=== PATIENT | female | born 1955 | race Caucasian/White ===

== ENCOUNTER → 2020-06-03 | Outpatient (CLI) | payer MEDICARE ==
--- NOTE | 2020-06-03 14:48 | US ---
EXAMINATION TYPE: US transvaginal DATE OF EXAM: 06/03/2020 COMPARISON: NONE CLINICAL HISTORY: N95.0 POST MENOPAUSAL BLEEDING. TECHNIQUE: Transvaginal (TV). Date of LMP: postmenopausal EXAM MEASUREMENTS: Uterus: 6.9 x 3.6 x 4.0 cm Endometrial Stripe: 1.3 cm Right Ovary: not visualized atrophy/ overlying bowel Left Ovary: not visualized atrophy/ overlying bowel 1. Uterus: Anteverted 2. Endometrium: thickened heterogeneous, irregular shaped fluid collection with debris in endocervica l canal 3. Right Ovary: not visualized atrophy/ overlying bowel 4. Left Ovary: not visualized atrophy/ overlying bowel 5. Bilateral Adnexa: wnl 6. Posterior cul-de-sac: wnl IMPRESSION: There is a prominent irregular hypoechoic collection within the cervical endometrial donaldo l. Fluid and debris could be considered. Additional workup recommended.
== END | disposition home or self-care (01) ==
LOC: RADUSWWP 13:55
PROVIDERS: ATTEND Obstetrics & Gynecology
DX: R93.89 Abnormal findings on diagnostic imaging of other specified body structures (principal); N95.0 Postmenopausal bleeding
CPT/HCPCS: 76830

== ENCOUNTER → 2020-06-11 | Outpatient (CLI) | payer MEDICARE ==
[2020-06-11 12:07] LABS: Basophils # (A) 0.1 k/uL (0-0.2); Basophils % (A) 1 %; Eosinophils # (A) 0.2 k/uL (0-0.7); Eosinophils % (A) 3 %; HCT 44.1 % (34.0-46.0); Lymphocytes # (A) 1.4 k/uL (1.0-4.8); Lymphocytes % (A) 20 %; MCH 30.7 pg (25.0-35.0); MCV 90.5 fL (80.0-100.0); Mean Platelet Volume 9.3; Monocytes # (A) 0.4 k/uL (0-1.0); Monocytes % (A) 6 %; Neutrophils # (A) 4.6 k/uL (1.3-7.7); Neutrophils % (A) 68 %; Platelet Count 284 k/uL (150-450); RBC 4.88 m/uL (3.80-5.40); RDW 12.9 % (11.5-15.5); WBC 6.8 k/uL (3.8-10.6)
== END | disposition home or self-care (01) ==
LOC: LABPAT 11:07
PROVIDERS: ATTEND Obstetrics & Gynecology
DX: Z01.818 Encounter for other preprocedural examination (principal)
CPT/HCPCS: 36415; 85025; 93005

== ENCOUNTER → 2020-06-23 | Day surgery (SDC) | payer MEDICARE ==
[2020-06-16 12:57] VITALS: BMI 38.0
--- NOTE | 2020-06-22 15:56 | P.HPOB ---
History of Present Illness H&P Date: 06/22/20 Chief Complaint: Postmenopausal bleeding. This patient is a pleasant 65 yr female who was referred to me evaluation of postmenopausal bleeding. When she initially saw me, she was leaving for [place] for 3 months and intended on doing evaluation there. Unfortunately her daughter was then hit by a train and lost her leg and Nora therefore returned to [place] for evaluation here. Evaluation has included a pelvic ultrasound which shows abnormal endometrial thickening to 1.3 cm. She how presents for hysteroscopy and D&C for further evaluation. Review of Systems Genitourinary: Reports as per HPI, Reports abnormal vaginal bleeding Menstruation: Reports postmenopausal Past Medical History Past Medical History: Diabetes Mellitus, Hypertension Additional Past Medical History / Comment(s): SEASONAL ALLERGIES. POST MENOPAUSAL BLEEDING History of Any Multi-Drug Resistant Organisms: None Reported Past Surgical History: Section Additional Past Surgical History / Comment(s): D & C. C-SEC X 2. RT EYE PTERYGIUM SX Past Anesthesia/Blood Transfusion Reactions: No Reported Reaction Smoking Status: Never smoker Past Alcohol Use History: None Reported Past Drug Use History: None Reported - Past Family History Mother Family Medical History: Cancer Sister(s) Family Medical History: Cancer Medications and Allergies Home Medications Medication Instructions Recorded Confirmed Type Atenolol/Chlorthalidone 1 tab PO DAILY 12/18/13 06/16/20 History [Atenolol-Chlorthalidone 100-25] diphenhydrAMINE [Benadryl] 25 mg PO Q6H PRN 12/18/13 06/16/20 History Fish Oil/Dha/Epa [Fish Oil 1,200 1 each PO DAILY 06/16/20 06/16/20 History mg Fish Oil] Levocetirizine Dihydrochloride 5 mg PO DAILY 06/16/20 06/16/20 History [Xyzal] Potassium Chloride 10 meq PO DAILY 06/16/20 06/16/20 History metFORMIN HCL [Glucophage] 500 mg PO DAILY 06/16/20 06/16/20 History Allergies Allergy/AdvReac Type Severity Reaction Status Date / Time No Known Allergies Allergy Verified 06/16/20 12:41 Exam - OBG Physical Exam Abdomen: bowel sounds normal, no diffuse tenderness, no bruit present, no guarding noted, no hepatomegaly, no splenomegaly, no mass Vulva: both: normal Vagina: normal moisture, no discharge Cervix: no lesion, no discharge Uterus: normal size Results Ultrasound on 06/03 shows endometrial thickening to 1.3 cm. Assessment and Plan Assessment: This is a pleasant 65 yr old female with postmenopausal bleeding and abnormal endometrial thickening on ultrasound. Plan is hysteroscopy and D&C. Nora and I have discussed this surgery and risks: infection, bleeding, possible uterine perforation. All of her questions were answered and a written consent obtained. (1) Postmenopausal bleeding Status: Acute Code(s): N95.0 - POSTMENOPAUSAL BLEEDING SNOMED Code(s): 58002849 (2) Endometrial thickening on ultrasound Status: Acute Code(s): R93.89 - ABNORMAL FINDINGS ON DX IMAGING OF OTH BODY STRUCTURES SNOMED Code(s): 823029588
[~2020-06-23] MED LIST: ALBUTEROL HFA INHALER INHALATION ONE; DEXAMETHASONE SOD PHOSPHATE 4 MG/ML 1 ML VIAL IV ONE; GLYCOPYRROLATE 0.2 MG/ML 2 ML VIAL ONE; KETOROLAC 15 MG/ML 1 ML VIAL ONE; LACTATED RINGERS 1,000 ML IV ONE; LACTATED RINGERS 1,000 ML IV SCH; LIDOCAINE 1% INJ 10MG/ML (20 ML MDV) ONE; MIDAZOLAM 2 MG/2 ML VIAL ONE; ONDANSETRON 4 MG/2 ML VIAL IVP ONE; ONDANSETRON 4 MG/2 ML VIAL ONE; PROPOFOL 10 MG/ML 20 ML VIAL IV ONE; Pre Op ABX Message 1 EACH MISC MISCELLANE ONE; SUCCINYLCHOLINE CHLORIDE 100 MG/5 ML SYR IV ONE; fentaNYL (PF) 50 MCG/ML 2 ML AMP ONE
[2020-06-23 06:15] LABS: Glucose,Whole Blood 219 mg/dL (75-99)
--- NOTE | 2020-06-23 07:31 | P.OP ---
Date of Procedure: 06/23/20 Preoperative Diagnosis: Post menopausal bleeding Postoperative Diagnosis: Same Procedure(s) Performed: #1: Hysteroscopy. #2: Dilation and curettage Anesthesia: JIM Surgeon: Ronaldo Cadena Estimated Blood Loss (ml): 10 Urine output (ml): 25 Pathology: other (Uterine curettings) Condition: stable Disposition: PACU Indications for Procedure: Please see dictated H&P for intimate details of this patient's admission. Brief summary this is a pleasant 65-year-old 2 para 2 female who presented to [place] for evaluation of postmenopausal bleeding. Dilation showed endometrial thickening to 1.3 cm. Patient now presents for hysteroscopy D&C for further evaluation. Patient I discussed the surgery and risks and risks of infection, bleeding, possible uterine perforation. All the patient's questions are answered written consent is obtained. Operative Findings: This patient had a proximally 1 cm polyp of the endometrium. Description of Procedure: This patient is taken to the operating room where she is laid in the supine position. She subsequently undergoes general endotracheal anesthesia without incident. With an adequate level of anesthesia she's placed in dorsal lithotomy position. Examination under anesthesia shows a small uterus mid position. I first drain the bladder for 25 mL of clear urine. Weighted speculum placed in the posterior vagina. I grabbed the anterior lip of the cervix with an Allis clamp. Cervix is stenotic but is gently dilated and then the uterus is sounded to 7 cm. I do serial dilations until the hysteroscope fits and the uterine cavity easily. Hysteroscopy is performed with saline solution. There appears to be a 1 cm polyp that is pedunculated in the intrauterine cavity. Some small white excrescences but otherwise the cavity appears atrophic. With this done the hysteroscope was removed. Cervix is dilated more to allow the polyp forceps into the uterine cavity. Multiple passes are made to let believe the polyp was removed. A gentle but vigorous 4 quadrant curettage is then done multiple times. All this tissue is sent off to pathology. This completed the procedure is ended. The Allis clamp and weighted speculum was removed. All counts are correct 3. There are no complications. Patient is awakened from anesthesia and taken recovery room satisfactory condition.
[2020-06-23 07:45] VITALS: TEMP 97
[2020-06-23 07:48] LABS: Glucose,Whole Blood 251 mg/dL (75-99)
[2020-06-23 08:38] VITALS: RESP 18
[2020-06-23 08:44] VITALS: BP 145/89; PULSE 50
== END | disposition home or self-care (01) ==
LOC: OR 05:41
PROVIDERS: ATTEND Obstetrics & Gynecology
DX: C54.1 Malignant neoplasm of endometrium (principal); N84.0 Polyp of corpus uteri; I10 Essential (primary) hypertension; E11.9 Type 2 diabetes mellitus without complications; Z98.891 History of uterine scar from previous surgery; Z98.890 Other specified postprocedural states; J30.2 Other seasonal allergic rhinitis; Z80.9 Family history of malignant neoplasm, unspecified; Z79.84 Long term (current) use of oral hypoglycemic drugs; Z79.899 Other long term (current) drug therapy
CPT/HCPCS: 88305; 58558; J2250; J1100; J2405; J2001; J3010; J1885; J0330; J2704

== ENCOUNTER → 2021-11-13 | Outpatient (CLI) | payer MEDICARE ==
--- NOTE | 2021-11-17 06:53 | PE ---
EXAMINATION TYPE: PET CT fusion skull to thigh DATE OF EXAM: 11/13/2021 COMPARISON: Prior PET/CT September 04, 2021 HISTORY: Endometrial cancer diagnosed on hysterectomy in June 2020 completed chemotherapy November 10, 2021 TECHNIQUE: Following the intravenous administration of 9.25 mCi of F-18 FDG, whole body images are p erformed from the skull base to the midthigh. Images are reviewed on the computer in the coronal, ax ial, and sagittal planes. Reconstructed rotating images are created on independent workstation and r eviewed on the computer. A localization and attenuation correction CT is performed in conjunction w ith the PET scan. Blood glucose level equals 141 SCAN: Subsequent Scan FINDINGS: SKULL BASE AND NECK: No new areas of abnormal hypermetabolic uptake. CHEST, MEDIASTINUM, AND HILAR REGION: No new areas of abnormal hypermetabolic uptake. ABDOMEN AND PELVIS: Adjacent to the gallbladder there is a focus of air now present, prior visualized hypermetabolic hypodense lesion now is not distinctly seen. Smaller area of abnormal hypermetabolic uptake, max SUV is 3.97 on axial image 137 decreased from 4.98 on prior study. Was there attempted sa mpling or percutaneous treatment? Persistent irregular soft tissue mass left pelvis measuring near 2.7 x 2.3 cm axial image 201 decreas e in size from prior, improved hypermetabolic uptake, max SUV is 3.23 current study image 195 versus 10.2 on prior. Stable double-J left ureter stent is redemonstrated. Stable stent in the left common i liac vein is redemonstrated Prominent diffuse colonic uptake on current study is nonspecific. Normal excretion. No new areas of a bnormal hypermetabolic uptake. OSSEOUS STRUCTURES: No new areas of abnormal hypermetabolic uptake. OTHER CT: Low lung volumes and cardiomegaly with enlarged pulmonary arteries suggesting underlying pu lmonary artery hypertension is redemonstrated. Small size hiatal hernia is redemonstrated. Coronary a rtery calcification is present redemonstrated. Subcentimeter benign lesion posterior right hepatic dome axial image 108 is again seen. Poorly visual ized gallbladder redemonstrated. IMPRESSION: Partial positive treatment response as detailed above.
== END | disposition home or self-care (01) ==
LOC: RADPETMAIN 10:57
PROVIDERS: ATTEND Internal Medicine Hematology & Oncology
DX: C54.1 Malignant neoplasm of endometrium (principal); K76.9 Liver disease, unspecified
CPT/HCPCS: 78815; A9552

== ENCOUNTER → 2022-07-09 | Outpatient (CLI) | payer MEDICARE ==
--- NOTE | 2022-07-11 22:13 | PE ---
EXAMINATION TYPE: PET CT fusion skull to thigh DATE OF EXAM: 07/09/2022 CLINICAL INDICATION:Female, 67 years old with history of C54.1 Breast CA; TECHNIQUE: Following the intravenous administration of 11.74 mCi of F-18 FDG, whole body images are performed from the skull base to the midthigh. Images are reviewed on the computer in the coronal, axial, and sagittal planes. Reconstructed rotating images are created on independent workstation and reviewed on the computer. A non-contrast CT is performed in conjunction with the PET scan. Glucose level 110 mg/dL COMPARISON: CT 08/16/2021, PET/CT 11/13/2021, FINDINGS: Mediastinal SUV mean is 1.6. Hepatic parenchyma SUV mean is 2.4. SKULL BASE AND NECK: No suspicious radiotracer activity. CHEST, MEDIASTINUM, AND HILAR REGION: New scattered pulmonary nodules with increased size and number with increased FDG activity. Examples include: * New Right lower lobe 12 mm Max SUV 1.8. Image 82 * New Right lower lobe 10 mm max SUV 2.1. Image 87 * New left lower lobe 12 mm Max SUV 1.5. Image 91 * New left lower lobe 12 mm Max SUV 1.2. Image 89 * New left upper lobe 9 mm Max SUV 1.4. Image 78 ABDOMEN AND PELVIS: Abnormal focus within the right hepatic lobe segment 4A max SUV 5.1 measuring 1.4 cm. Lymphadenopathy in the abdomen including in the retroperitoneum along the aorta extending down into t he pelvis. * Left periaortic measuring up to 20 mm in short axis max SUV 6.5. * Left common iliac measuring 3.1 x 2.7 cm Max SUV 8.8. * Left external iliac lymph nodes measuring in totality 3.6 x 2.4 cm in max SUV 8.0. OSSEOUS STRUCTURES: No suspicious radiotracer activity. OTHER CT: Atherosclerosis of the arterial vasculature including the carotid bifurcations. Coronary ar lemuel atherosclerotic calcifications. Heart is mildly enlarged for size. Small hiatal hernia. Left ure teral stent with hardware in appropriate position. Left vascular stent present. IMPRESSION: Progression of disease with new enlarged FDG avid pulmonary nodules, hepatic metastatic focus, and ly mphadenopathy.
== END | disposition home or self-care (01) ==
LOC: RADPETMAIN 07:43
PROVIDERS: ATTEND Internal Medicine Hematology & Oncology
DX: C78.7 Secondary malignant neoplasm of liver and intrahepatic bile duct (principal); C54.1 Malignant neoplasm of endometrium; C50.919 Malignant neoplasm of unspecified site of unspecified female breast; R59.0 Localized enlarged lymph nodes; R91.8 Other nonspecific abnormal finding of lung field
CPT/HCPCS: 78815; A9552

== ENCOUNTER → 2022-11-12 | Outpatient (CLI) | payer MEDICARE ==
--- NOTE | 2022-11-13 19:04 | PE ---
EXAMINATION TYPE: PET CT fusion skull to thigh DATE OF EXAM: 11/12/2022 CLINICAL INDICATION:Female, 67 years old with history of C54.1 endometrial ca breast ca; TECHNIQUE: Following the intravenous administration of 11.7 mCi of F-18 FDG, whole body images are performed from the skull base to the midthigh. Images are reviewed on the computer in the coronal, a xial, and sagittal planes. Reconstructed rotating images are created on independent workstation and reviewed on the computer. A non-contrast CT is performed in conjunction with the PET scan. Glucose level 111 mg/dL COMPARISON: CT None, PET/CT 07/09/2022, FINDINGS: Mediastinal SUV mean is 0.9. Hepatic parenchyma SUV mean is 1.5. SKULL BASE AND NECK: No suspicious radiotracer activity. CHEST, MEDIASTINUM, AND HILAR REGION: Right pulmonary hilum FDG activity max SUV 3.8 measuring at least 15 x 14 mm. Evaluation limited Scattered pulmonary nodules. Examples include: * Increase in size and of the right lower lobe now 14 mm, previously 12 mm, Max SUV 0.4, previously 1.8. * Increase in size and of the right lower lobe 13 mm, previously 10 mm, max SUV 0.7, previously 2.1. * Stable left lower lobe 12 mm Max SUV 0.6, previously 1.5. * No longer visualized left lower lobe previously 12 mm Max SUV 1.2 Nodule * Stable to fractionally increase in size left upper lobe 10 mm, 9 mm Max SUV previously 0.6, previo usly 1.4. The adjacent nodule now measures up to 6 mm, previously 3 mm. Other smaller nodules are present some of which have increased in size while others are stable. ABDOMEN AND PELVIS: No abnormal uptake seen within the liver on this exam. There are areas of low attenuation of the live r parenchyma in the right hepatic lobe measuring 20 mm in more inferiorly in the right hepatic lobe m easuring 22 mm which have increased in size from prior. Lymphadenopathy in the abdomen including in the retroperitoneum along the aorta extending down into t he pelvis. * Left periaortic measuring up to measuring up to 15 mm previously 20 mm in short axis max SUV 1.5, previously 6.5. * Superior to the lymph node mentioned immediately above measuring 12 mm, previously 16 mm Max SUV 2 .6, previously 7.8. * Left common iliac measuring 0.8 x 1.7 cm previously 3.1 x 2.7 cm Max SUV 1.8, previously 8.8. * Left external iliac lymph nodes measuring in totality 3.1 x 2.1 cm previously 3.6 x 2.4 cm in max SUV 2.0, previously 8.0. * New right inguinal lymph nodes measuring 13 mm max SUV 6.5 Abnormal uptake within the left adnexa extending towards the bladder could be within the left ureter. Evaluation is difficult given lack of IV contrast. Soft tissue along the course of the ureter is pre sent with underlying metastatic disease not entirely excluded. Evaluation for FDG activity is limited due to the adjacent ureter. Overall the detail within the pelvis is very limited due to lack of IV c ontrast and generalized haziness to the fat in multiple adjacent structures close proximity to each o ther. OSSEOUS STRUCTURES: No suspicious radiotracer activity. OTHER CT: Atherosclerosis of the arterial vasculature including the carotid bifurcations. Coronary ar lemuel atherosclerotic calcifications. Heart is mildly enlarged for size. Small hiatal hernia. Left ure teral stent with hardware in appropriate position. Left vascular stent present. IMPRESSION: Overall findings suggest progression of disease with some of the pulmonary nodules increasing in size however the metabolic activity has decreased. There is a new right pulmonary hilum lymph node with i ncreased metabolic activity suspicious for progression of disease. Lesions within the liver appear la rger on CT imaging but do not demonstrate increased FDG activity in this exam. There is some positive response to the lymph nodes within the abdomen and pelvis with decrease in size and metabolic activi ty. There is a new right inguinal lymph node increased metabolic activity. Evaluation of the pelvis i s somewhat limited given the ureter measuring close approximation of adjacent structures.
== END | disposition home or self-care (01) ==
LOC: RADPETMAIN 10:59
PROVIDERS: ATTEND Internal Medicine Hematology & Oncology
DX: C54.1 Malignant neoplasm of endometrium (principal)
CPT/HCPCS: 78815; A9552